=== PATIENT | male | born 1955 | race Caucasian/White ===

== ENCOUNTER 2017-04-24 09:34 | Day surgery (SDC) | payer BC ==
[2017-04-21 09:27] VITALS: BMI 33.0
[2017-04-24] MEDS ORDERED: Lidocaine 2% Inj (20ml) ONE (11:10)
[2017-04-24] MEDS ORDERED: Propofol 10 mg/ml Inj (20 ML) ONE (11:10)
[2017-04-24] MEDS ORDERED: Sodium Chloride 0.9% 1,000 ML IV SCH (12:00)
[2017-04-24 12:24] VITALS: RESP 16; O2SAT 98
[2017-04-24 14:27] VITALS: BP 123/80; PULSE 82; TEMP 98.1
== END 2017-04-24 13:22 | disposition home or self-care (01) ==
LOC: ENDO 09:34
PROVIDERS: ATTEND Internal Medicine Gastroenterology
DX: Z12.11 Encounter for screening for malignant neoplasm of colon (principal); K63.5 Polyp of colon; K64.1 Second degree hemorrhoids
CPT/HCPCS: 45385; 88305; J2704; J7040 ×2